=== PATIENT | female | born 1980 | race Caucasian/White ===

== ENCOUNTER → 2016-10-23 | Day surgery (SDC) | payer BC ==
[~2016-10-23] MED LIST: LORTAB 7.5-3251 EACH PO; ULTRAM PO; VITAMIN D32000 UNIT PO; WELLBUTRIN SR150 M1 PO; ZOLOFT50 MG PO
--- NOTE | ~2016-10-23 | OR ---
Unit #: [id number] #: [id number] Patient: STEPHON GONSALEZ [id number] [address] [place], [place] [address] [id number] O MR#: [id number] NAME: STEPHON GONSALEZ ROOM: Date of Procedure: 10/23/2016 Admission Date: 10/23/2016 Surgeon: Soren Birmingham M.D. : 1980 Attending Physician: Soren Birmingham M.D. OPERATIVE REPORT PREOPERATIVE DIAGNOSIS Malfunction of spinal cord stimulator. POSTOPERATIVE DIAGNOSIS Malfunction of spinal cord stimulator. PROCEDURE PERFORMED Removal of spinal cord stimulator system, [employer]. SURGICAL INDICATION AND RATIONALE Ms. Stephon Gonsalez is a pleasant 36-year-old female, who had a spinal cord stimulator implanted about 4 years ago for thoracic outlet syndrome with pain radiating down the right upper extremity. The patient has done quite well with this device, but she said that for the last year and a half, she has loss of stimulation in the upper extremity and was not interested in having this device help her with her pain. The patient had come to my office about 2 months ago with the request to have this removed. I did discuss with the patient all the risks, benefits and alternatives available, and the patient would like to proceed with the removal. DESCRIPTION OF PROCEDURE After obtaining full informed consent and after discussion with the patient of possible complications including infection, bleeding, paralysis, mild headaches, , and other perioperative complications were discussed with the patient and consent was obtained in front of the preoperative nurse, Emelia. The patient was then taken back to the operating room. The patient received antibiotic coverage 30 minutes before entering the operating room. General anesthesia was then induced and the patient was then positioned in the prone position. Her back was then prepped and draped in the usual fashion. I then anesthetized the two incisions using a mixture of 1% lidocaine with 0.5% Marcaine with epinephrine. After this was done, I used a #9 blade to make an incision over the battery and without much difficulty, I was able to release the [employer] IPG. I then made an incision over the lumbar spine and again without much difficulty, I was able to find the two anchors which were holding down the electrodes at the interspinous ligament. The electrodes were then removed and the entire system was removed en bloc. The two incisions were then copiously irrigated with irrigant and I then lined the space with powdered vancomycin 500 mg, and the two incisions were then closed using interrupted Vicryl sutures and the skin was approximated with maria del carmen. The patient then was given a Unit #: [id number] #: [id number] Patient: STEPHON GONSALEZ Telfa-Tegaderm dressing and was brought back to the recovery room for neurologically monitoring. PLAN OF CARE The patient had an uneventful recovery period and was discharged home neurologically intact with plans to return to my office in 7 days to have the maria del carmen removed. The patient and her acknowledge understanding of all the risks, benefits, and alternatives available and would like to proceed. Dictated by... Rodney Fonseca/jr TD: 10/26/2016 16:19 JOB #: [id number] OPERATIVE REPORT Page 1 of 1 X Soren Birmingham MD X PROCEDURE OPERATIVE NOTE
== END | disposition home or self-care (01) ==
LOC: CSUR 12:07
DX: T85.112A Breakdown (mechanical) of implanted electronic neurostimulator of spinal cord electrode (lead), initial encounter (principal); T85.113A Breakdown (mechanical) of implanted electronic neurostimulator, generator, initial encounter; G56.41 Causalgia of right upper limb; F17.210 Nicotine dependence, cigarettes, uncomplicated; Z88.8 Allergy status to other drugs, medicaments and biological substances; Z79.891 Long term (current) use of opiate analgesic; Z79.899 Other long term (current) drug therapy; Z98.1 Arthrodesis status; Y83.1 Surgical operation with implant of artificial internal device as the cause of abnormal reaction of the patient, or of later complication, without mention of misadventure at the time of the procedure
CPT/HCPCS: 84703; J0330; J0690; J2250; J2405; J2710; J3010

== ENCOUNTER → 2017-01-01 | Day surgery (SDC) | payer MEDICAID ==
--- NOTE | ~2017-01-01 | OR ---
Unit #: [id number] #: [id number] Patient: STEPHON GONSALEZ [id number] [address] [address] [id number] O MR#: [id number] NAME: STEPHON GONSALEZ ROOM: Date of Procedure: 01/01/2017 Admission Date: 01/01/2017 Surgeon: Soren Birmingham M.D. : 1980 Attending Physician: Soren Birmingham M.D. Referring Physician: Soren Birmingham M.D. OPERATIVE REPORT PREOPERATIVE DIAGNOSES 1. Thoracic outlet syndrome. 2. Chronic pain syndrome. POSTOPERATIVE DIAGNOSES 1. Thoracic outlet syndrome. 2. Chronic pain syndrome. PROCEDURES PERFORMED 1. Implantation of [employer]onic SynchroMed two pump. 2. Implantation of Ascenda catheter. 3. Physician filling of pump. 4. Fluoroscopy. SURGICAL INDICATION RATIONALE Ms. Stephon Gonsalez is a pleasant 36-year-old female, who has been suffering from intractable pain secondary to thoracic outlet syndrome and chronic neck pain secondary to fusion surgery. The patient also complains of low back pain secondary to discogenic causes. The patient has had conservative treatment options including nonsteroidal anti-inflammatory medications, muscle relaxants, property caretaker, physical therapy, epidural injections, and surgery. The patient continues to complain of severe pain and has been using increasing doses of oral opioids. The patient had a successful pain pump trial epidurally in which she had about 80% reduction of pain with use of hydromorphone. The patient is now moving forward to having an implantation of the intrathecal pain pump done. The patient has had an extensive education process regarding the risks, benefits, and alternatives available including consent decree and I made sure that the patient understood my explanations by using a teach back method. Ms. Laurel Villagomez with [employer] also educated the patient regarding the consent decree and all the patient's questions were answered to the patient's satisfaction. The patient also has had a cardiac clearance along with the psychological evaluation that the patient had when she had a spinal cord stimulator implanted years ago. DESCRIPTION OF PROCEDURE After obtaining full informed consent, after discussion with the patient possible complications including infection, bleeding, paralysis, spinal headaches, , and other perioperative complications were discussed with the patient and consent was obtained in front of nurse, Kathy. The patient was then taken back to the operating room, where a time-out was Unit #: [id number] #: [id number] Patient: STEPHON GONSALEZ done in accordance to the joint commission guidelines where the patient's identity, procedure, and site of procedure were verified. The patient was then given general anesthesia by the anesthesiologist and positioned in the left lateral decubitus position. All pressure points were padded under the guidance of the anesthesiologist. The patient was then prepped and draped in the usual fashion. I had marked out an area on the right side of her abdomen, where I would place the intrathecal pump. After the skin target sites were anesthetized, I made an incision using a #10 blade measuring about 6 cm in length. I then used the help of the Bovie to develop a pocket, which was done without much difficulty. All the bleeders were stopped and this pocket was copiously irrigated with irrigant. I then visualized the lumbar spine. Using fluoroscopy and I made an incision over a previous incision, where she had a spinal cord stimulator implanted. I used the help of the Bovie to undermine the subcutaneous tissue and once that was done, this incision was copiously irrigated with irrigant. I then used a 17-gauge Tuohy needle to access the intrathecal space, which I was able to achieve at first pass. Once this was achieved, I navigated an Ascenda catheter through the Tuohy needle to reach the upper border of T7 under live fluoroscopic view. Once this was done, the Tuohy needle along with the catheter stylet were removed and I used a special anchoring device to anchor this catheter to the interspinous ligament. This anchor was further fortified using 3-0 Prolene sutures. I then used a tunneling device to tunnel this catheter into the abdominal incision. This catheter was then cut to size and then I used a special adapter to connect a second piece of catheter, which is connected to the pump. This pump was filled by me with morphine at 5 mg/mL. Once the pump was connected, I accessed the side port using a 24 gauge Girard needle and I was able to obtain CSF. Once this was determined, this confirmed that the catheter and the pump system were intact. I placed a TyRx pouch into the pocket and then placed the pump into the pocket and secured it to the underlying anchors with 3-0 Prolene sutures. The two incisions were then carefully inspected and closed using interrupted 3-0 Vicryl sutures in two layers and the skin was approximated with maria del carmen. A Telfa Tegaderm dressing was placed and the patient was brought back to the recovery room for neurological monitoring. PLAN OF CARE The patient had an uneventful recovery period and was discharged home neurologically intact with plans to return to my office in seven days to have her maria del carmen removed. The patient's pump has been started at a daily dose of 0.3 mg per day with the ability to access her patient therapy coordinator at 0.03 mg with three activations per day. The total maximum daily dose would be 0.3892 mg. I also discussed the course of the surgical procedure with her and they acknowledged understanding and would like to move forward. An abdominal binder was also given to the patient. Dictated by.Rodney Gonzales/jr TD: 01/02/2017 14:22 JOB #: [id number] Unit #: [id number] #: [id number] Patient: STEPHON GONSALEZ OPERATIVE REPORT Page 1 of 1 X Soren Birmingham MD PROCEDURE OPERATIVE NOTE
== END | disposition home or self-care (01) ==
LOC: CSUR 10:36
DX: G54.0 Brachial plexus disorders (principal); G89.4 Chronic pain syndrome; J44.9 Chronic obstructive pulmonary disease, unspecified; F17.200 Nicotine dependence, unspecified, uncomplicated
CPT/HCPCS: 76000; 84703; C1772; J0690; J2250; J2405; J3010